=== PATIENT | female | born 1995 | race Asian ===

== ENCOUNTER 2018-03-05 16:04 | Emergency (ER) | payer BC ==
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
--- NOTE | 2018-03-05 18:37 | RAD ---
INDICATION: Intracranial injury COMPARISON: None TECHNIQUE: Noncontrast axial source images were acquired from the skull base to the vertex. FINDINGS: Ventricles/sulci: The ventricles and cisterns are normal in size and configuration for age. Brain parenchyma: There is no focal parenchymal finding, evidence of intracranial mass, or intracranial mass effect. Intracranial hemorrhage:None. Extra-axial spaces: There are no abnormal extra axial fluid collections or evidence of extra-axial mass. Calvarium: There is no calvarial fracture or other calvarial abnormality. Scalp: There is no evidence of scalp or extracalvarial soft tissue abnormality. Paranasal sinuses/mastoid: The paranasal sinuses and mastoid air cells are clear. Other: None. IMPRESSION: NEGATIVE EXAMINATION
[2018-03-05 18:53] VITALS: BP 108/51
== END 2018-03-05 18:53 | disposition home or self-care (01) ==
LOC: ED 16:04
DX: S09.90XA Unspecified injury of head, initial encounter (principal); V00.131A Fall from skateboard, initial encounter; Y93.51 Activity, roller skating (inline) and skateboarding; Y92.9 Unspecified place or not applicable; Z88.0 Allergy status to penicillin; Z72.0 Tobacco use
CPT/HCPCS: 70450; 99282

== ENCOUNTER 2019-01-31 23:44 | Inpatient (IN) | payer BC, OTHER ==
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
[2019-02-01 00:38] LABS: Urine Appearance Clear; Urine Bilirubin Negative (Negative); Urine Blood Negative (Negative); Urine Color Yellow; Urine Glucose Negative (Negative); Urine Ketones 1+ (Negative); Urine Nitrite Negative (Negative); Urine Protein Negative (Negative); Urine Specific Gravity 1.004 (1.010-1.030); Urine Urobilinogen Negative (Negative)
[2019-02-01 00:57] LABS: ABS Lymphocytes 1.7 10^3/ul (1.0-4.8); ABS Monocytes 0.8 10^3/ul (0-0.8); ABS Neutrophils 2.5 10^3/ul (1.5-7.7); Eosinophil % 0.6 %; Hematocrit 40 % (35-47); Hemoglobin 13.4 g/dL (12.0-16.0); Lymphocyte % 33.7 %; Mean Corpuscular HGB Conc 34 g/dL (31-36); Mean Corpuscular Hemoglobin 30 pg (27-31); Mean Corpuscular Volume 90 fL (80-97); Mean Platelet Volume 7.8 fL (7.4-10.4); Platelet Count 205 10^3/uL (150-450); Red Blood Count 4.44 10^6 /uL (3.70-4.87); Red Cell Distribution Width 14 % (10-15); White Blood Count 5.1 10^3/uL (3.5-10.8)
[2019-02-01 01:16] LABS: Urine Benzodiazepine Screen None Detected (None Detect); Urine Opiates Screen None Detected (None Detect)
[2019-02-01 01:17] LABS: ALT 5 U/L (7-52); AST 17 U/L (13-39); Albumin 4.7 g/dL (3.2-5.2); Albumin/Globulin Ratio 1.8 (1-3); Alkaline Phosphatase 42 U/L (34-104); Anion Gap 12 mmol/L (2-11); BUN/Creatinine Ratio 10.2 (8-20); Blood Urea Nitrogen 6 mg/dL (6-24); CO2 Carbon Dioxide 18 mmol/L (22-32); Calcium 9.5 mg/dL (8.6-10.3); Chloride 107 mmol/L (101-111); EGFR African American 152.8 (>60); EGFR Non-African American 126.3 (>60); Globulin 2.6 g/dL (2-4); Glucose 81 mg/dL (70-100); Potassium 3.1 mmol/L (3.5-5.0); Sodium 137 mmol/L (135-145); Total Protein 7.3 g/dL (6.4-8.9)
[2019-02-01 01:22] LABS: Acetaminophen < 15 mcg/mL; Alcohol 134 mg/dL (<10); Salicylate < 2.50 mg/dL (<30)
[2019-02-01] MEDS ORDERED: Potassium Chlor TAB* 20 MEQ TAB.ER PO ONE (01:55)
[2019-02-01] MEDS ORDERED: Lactated Ringers 1000 ML Bag* 1,000 ML IV SCH (02:02)
[2019-02-01] MEDS ORDERED: Acetaminophen TAB* 325 MG PO PRN (05:57)
[2019-02-01] MEDS ORDERED: Al Hydrox/Mg Hydrox/Simet LIQ* 30 ML UDC PO PRN (05:57)
[2019-02-01] MEDS ORDERED: chlorproMAZINE TAB* 50 MG PO PRN (05:58)
[2019-02-01] MEDS ORDERED: Vitamin THERAPEUTIC TAB PO SCH (09:00)
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
[2019-02-01] MEDS ORDERED: diPHENhydraMINE PO* 50 MG PO PRN (22:09)
[2019-02-02 07:18] LABS: Albumin 4.1 g/dL (3.2-5.2); Albumin/Globulin Ratio 1.7 (1-3); BUN/Creatinine Ratio 12.3 (8-20); Calcium 8.9 mg/dL (8.6-10.3); EGFR Non-African American 131.4 (>60); Globulin 2.4 g/dL (2-4); HDL Cholesterol 57.7 mg/dL; Potassium 3.7 mmol/L (3.5-5.0); Total Bilirubin 0.5 mg/dL (0.2-1.0); Total Protein 6.5 g/dL (6.4-8.9)
[2019-02-02] MEDS: Prenatal Vitamin TAB PO SCH (11:17)
--- NOTE | 2019-02-02 11:28 | PN ---
Subjective - Subjective Date of Service: 02/02/19 Service Type: 67902 Hosp care 35 min high complexity Subjective: Nursing Report: Patient was visible on unit, no chemical restraints or PRNs. Slept overnight without incident. Attending group activities. CC: "Fine Patient was seen and evaluated today in the common room. The patient reported she feels safe on the unit and is interacting with peers. She reported having an adequate appetite and sleep. The patient reports attending and participating in day groups. Per nursing no behavioral issues or overnight events reported. Patient received message from [facility] [employer] [facility] in regards to a investigation. [facility] she decided against carrying on her . Patient reported being stressed out over finding out she is and has arranged support of her friends to be with her after she terminates her . Objective - General Observations Appearance: Neat Appears Stated Age: Yes Stature: Thin Posture: WNL Eye Contact: Average Behavior/Activity: Accelerated - Interaction Observations Attitude Towards Examiner: Evasive Stated Mood: Anxious Affect: Blunted Speech Pattern/Tone: Clear Thought Process: Coherent Perception: WNL Thought Content: Self-Deprecatory Hallucination Type: None Delusion Type: None - Cognitive Function Orientation: A&O x 4 Level of Consciousness: Awake - Medication Compliance Cooperative with Inpatient Medication Regimen: Yes - Group Participation Participates in Group Activities: Yes Assessment - Assessment Merits Inpatient Hospitalization: For Immediate Safety Clinical Impression: 23 year old female who recently found out she is presented to the hospital after being found unresponsive following consuming alcohol, ammonia based kitchen products and writing a suicide note. Plan - Plan Treatment Plan: Name: JORGE RIVERA Birthdate: 1995 [id number] Plan # Q15 minute observation. # The patient requires psychiatric inpatient admission at this time to assure safety, receive treatment and work toward stabilization. # MMPI not completed # Hypokalemia resolved # Currently -no further intervention per OB and hospitalist recommendations. # [facility] . # Obtained collateral information from mother # Collaboration with Religion Teacher Antonio Bailey # Borderline Personaility Disorder - Patient informed of Dx and effectiveness of DBT. # Start zoloft 25mg daily for depression. Patient has shown some improvement of insight since yesterday however she does continue to minimize the magnitude of her suicide attempt. #Goals before discharge include: To eliminate/ reduce suicidal ideation ABG pH 7.41 (7.35-7.45) 02/01/19 02:15 ABG HCO3 21.4 mmol/L (19-31) 02/01/19 02:15 Sodium 136 mmol/L (135-145) 02/02/19 06:44 Potassium 3.7 mmol/L (3.5-5.0) 02/02/19 06:44 BUN 7 mg/dL (6-24) 02/02/19 06:44 Creatinine 0.57 mg/dL (0.51-0.95) 02/02/19 06:44 Hemoglobin A1c 5.7 % (4.0-5.6) H 02/02/19 06:44 Calcium 8.9 mg/dL (8.6-10.3) 02/02/19 06:44 AST 13 U/L (13-39) 02/02/19 06:44 ALT 3 U/L (7-52) L 02/02/19 06:44 Triglycerides 54 mg/dL 02/02/19 06:44 Cholesterol 129 mg/dL 02/02/19 06:44 LDL Cholesterol 61 mg/dL 02/02/19 06:44 Continued Medication Management: Start Medication Medications: Current Medications Acetaminophen (Tylenol Tab*) 650 mg PO Q4H PRN PRN Reason: PAIN or TEMP > 101 F Al Hydrox/Mg Hydrox/Simethicone (Maalox Plus*) 30 ml PO Q4H PRN PRN Reason: INDIGESTION Diphenhydramine HCl (Benadryl Po*) 50 mg PO ONCE PRN PRN Reason: INSOMNIA Last Admin: 02/01/19 22:34 Dose: 50 mg Multivitamins ( Vitamin Tab*) 1 tab PO DAILY ED - Discharge Plan Discharge Plan: Inpatient Hospitalization
[2019-02-02] MEDS: Sertraline* 25 MG TAB PO SCH (13:53)
[2019-02-02] MEDS ORDERED: diPHENhydraMINE PO* 50 MG PO PRN (20:46)
[2019-02-03 07:59] VITALS: BP 103/65
[2019-02-03] MEDS: Prenatal Vitamin TAB PO SCH (09:04)
[2019-02-03] MEDS: Sertraline* 25 MG TAB PO SCH (09:04)
--- NOTE | 2019-02-03 10:59 | PN ---
Subjective - Subjective Date of Service: 02/03/19 Service Type: 84600 Hosp care 35 min high complexity Subjective: Nursing Report: Patient was visible on unit, no chemical restraints or PRNs. Slept overnight without incident. Attending group activities. CC: "Better Patient was seen and evaluated today in the common room. The patient reported she feels safe on the unit and read the book that staff provided her" She reported having an adequate appetite and sleep. The patient reports attending and participating in day groups. Per nursing no behavioral issues or overnight events reported. Patient expressed her readiness for discharge tomorrow. She reported no medication side effects. Objective - General Observations Appearance: Neat Stature: WNL Posture: WNL Eye Contact: Average Behavior/Activity: WNL - Interaction Observations Attitude Towards Examiner: Cooperative Stated Mood: Euthymic Affect: Blunted Speech Pattern/Tone: Clear Thought Process: Coherent Perception: WNL Thought Content: WNL Hallucination Type: None Delusion Type: None - Cognitive Function Orientation: A&O x 4 Level of Consciousness: Awake - Medication Compliance Cooperative with Inpatient Medication Regimen: Yes - Group Participation Participates in Group Activities: Yes Assessment - Assessment Merits Inpatient Hospitalization: For Immediate Safety Clinical Impression: 23 year old female who recently found out she is presented to the hospital after being found unresponsive following consuming alcohol, ammonia based kitchen products and writing a suicide note. Plan - Plan Treatment Plan: Name: JORGE RIVERA Birthdate: 1995 [id number] Plan # Q30 minute observation with staff pass # The patient requires psychiatric inpatient admission at this time to assure safety, receive treatment and work toward stabilization. # MMPI indicated features of impulsively and hypomania # [facility] . #Patient will have support of family upon discharge # Obtained collateral information from mother who noted that she has never had a suicide attempt # Collaboration with Basket Patcher Antonio Bailey # Borderline Personaility Disorder - Patient informed of Dx and effectiveness of DBT. # Start zoloft 25mg daily for depression. Will monitor for signs and features of octavio activation. Patient has shown some improvement of insight and shows the ability to ask for help and identify how her mental health effects her. #Goals before discharge include: To eliminate/ reduce suicidal ideation Tentative Discharge ABG pH 7.41 (7.35-7.45) 02/01/19 02:15 ABG HCO3 21.4 mmol/L (19-31) 02/01/19 02:15 Sodium 136 mmol/L (135-145) 02/02/19 06:44 Potassium 3.7 mmol/L (3.5-5.0) 02/02/19 06:44 BUN 7 mg/dL (6-24) 02/02/19 06:44 Creatinine 0.57 mg/dL (0.51-0.95) 02/02/19 06:44 Hemoglobin A1c 5.7 % (4.0-5.6) H 02/02/19 06:44 Calcium 8.9 mg/dL (8.6-10.3) 02/02/19 06:44 AST 13 U/L (13-39) 02/02/19 06:44 ALT 3 U/L (7-52) L 02/02/19 06:44 Triglycerides 54 mg/dL 02/02/19 06:44 Cholesterol 129 mg/dL 02/02/19 06:44 LDL Cholesterol 61 mg/dL 02/02/19 06:44 Vital Signs Temp Pulse Resp BP Pulse Ox 98.4 F 66 16 103/65 99 02/03/19 07:58 02/03/19 07:58 02/03/19 07:58 02/03/19 07:58 02/03/19 07:58 Continued Medication Management: Continue Outpt Medication Medications: Current Medications Acetaminophen (Tylenol Tab*) 650 mg PO Q4H PRN PRN Reason: PAIN or TEMP > 101 F Al Hydrox/Mg Hydrox/Simethicone (Maalox Plus*) 30 ml PO Q4H PRN PRN Reason: INDIGESTION Diphenhydramine HCl (Benadryl Po*) 50 mg PO ONCE PRN PRN Reason: INSOMNIA Last Admin: 02/01/19 22:34 Dose: 50 mg Diphenhydramine HCl (Benadryl Po*) 50 mg PO ONCE PRN PRN Reason: SLEEP Multivitamins ( Vitamin Tab*) 1 tab PO DAILY [facility] Last Admin: 02/03/19 09:04 Dose: 1 tab Sertraline HCl (Zoloft*) 25 mg PO DAILY ED Last Admin: 02/03/19 09:04 Dose: 25 mg - Discharge Plan Discharge Plan: Inpatient Hospitalization
[2019-02-03] MEDS: Cetirizine* 10 MG TAB PO SCH (13:03)
--- NOTE | 2019-02-03 15:34 | PN ---
BSU: Group Therapy Note - Service Type Service Type: 88069 Group Psychotherapy - Medication Education Group: Patient was attentive and participatory in group, and remained in good behavioral control. Patient expressed positive insights regarding relevant treatment interventions. Patient stated understanding of material discussed and had appropriate questions.
--- NOTE | 2019-02-04 08:58 | DS ---
Subjective - Subjective Service Types: [id number] [facility] over 30 min Discharge Date: 02/04/19 Subjective: CC: " Better" Patient looks forward to seeing her friends and getting past the procedure to terminate her . She denied feeling activated or over stimulated. The patient was seen and evaluated before discharge today. The patient reported having adequate appetite and sleep. The patient reports attending and participating in day groups. Per nursing no behavioral issues or overnight events reported. Patient reported tolerating medications without side effects. Justification for admission: Immediate Safety. CC " I got into a fight with my boyfriend" The patient was brought to [facility] by EMS after being found unresponsive at [facility]. The patient reported that she has had severe mood swings over the last month and has been fighting with her boyfriend. She reported drinking 7 shots of tequila last night and became upset and went to [facility] to cool down. She said that the police found suicide notes in her apartment after she requested them to look for her boyfriend at her apartment. Per ED report she consumed bleach and ammonia in a unknown quantity. She expressed that her boyfriend told her that she had a mental illness and needed to get evaluated but she found that to be offensive because she doesnt believe that she has a mental illness. She doesn't want visitors and doesn't want anyone to contact her parents. She reported being in shock after she recently found out that she was upon arriving to the hospital. She denied access to firearms or stockpiles of medications. She reported her sleep to be increased and has a diminished appetite. The patient denied homicidal ideation intent or plan. The patient denied auditory and/ or visual hallucinations. MDD She reported feeling sad for the last month and attributed it to having PMS ( pre-menstrual syndrome). She reported crying more often lately. She denied unintentional weight loss. She denied disturbance of sleep. She reported feelings of guilt and decreased concentration. Anxiety Denied having symptoms of anxiety such as having times where heart feels that it is beating out of chest , sweaty palms, or shallow breathing. Denied having uncomfortable or intrusive thoughts. Denied feeling restless, high strung, or worrying too much most of the time. Bipolar Reported severe mood swings, irritability and anger causing her to fight with her boyfriend. She denied increased talkativeness where no one can interrupt. She denied an increase in intensity in goal directed activities. She denied having the decreased need to sleep for days , having prolonged elevated mood , or feeling on top of the world. Denied impulsive risky sexual encounters. Denied spending money recklessly , going on spending sprees wiping out savings. Denied impulsively traveling out of town or country, having super cardoza, and unrealistic wealth or fame. Psychosis Does not endorse hearing things that other people do not hear or seeing things other people do not see. Denied feeling that TV is making references. Denied feeling that people are spying , following , or reading their thoughts. Eating disorders: Patient denied having excessive eating habits or feelings of guilt after eating. Denied repeated episodes of self induced vomiting after eating. PTSD Denied flashbacks, nightmares and avoidance of a prior traumatic event. PAST PSYCHIATRIC HISTORY: Prior Diagnosis : Unconfirmed ADHD Diagnosed in 8th grade. Unconfirmed premenstrual dysphoric disorder. History of past Psychiatric Hospitalizations: 1 prior psychiatric admission in [place] at age 14. History of past suicide/homicide attempts : Denied past suicide attempts. Denied past homicidal incidents. Outpatient follow-up: None Medications: Past trials of medications include adderall and vyvanse, stopped taking at age 16. Guardianship: None. FAMILY HISTORY: - Suicide: Patient is adopted and doesnt know if she has a family history of suicide. - Mental illness: Patient is adopted and doesnt know if she has a history of mental health in her biological family. - Substance abuse: Patient is adopted and doesnt know if she has substance abuse among her biological family members. SUBSTANCE ABUSE HISTORY: Denied using tobacco, heroin cocaine or other illicit substances. Denied abusing pills for recreational use. Denied past Substance abuse treatment. - EtOH: Drinks mixed drinks socially about once a week. Denied history of seizures or legal issues. SOCIAL HISTORY: Patient is single and has no children. She was adopted and raised in [place]. She completed high school and dropped out of [employer] for a job. She denied a history of physical and or sexual abuse. - Legal history: Denied - service history: Denied PAST MEDICAL HISTORY: Denied heart disease, diabetes, cancer and/ or other medical conditions. - Allergies: Penicillin. Physical Exam: Please see ED note Mental Status Exam on Admission APPEARANCE : 23 year old female who appears stated age. Patient is not malodourous, and appears to have fair hygiene and grooming. BEHAVIOR: Cooperative , calm EYE CONTACT: Fair PSYCHOMOTOR ACTIVITY: No psychomotor agitation or retardation. MOVEMENTS: No abnormal movements observed. SPEECH : Normal rate, rhythm, volume and tone. MOOD : " Sad" AFFECT : Type is depressed Range is restricted with shallow depth Mood Incongruent THOUGHT PROCESS: Formulated and organized in a logical, linear goal directed manner. No flight of ideas, neologism (made up words) , perseveration , tangential , loose associations , or circumstantiality. THOUGHT CONTENT: no delusions, obsessions, phobias or preoccupations. PERCEPTION: No current auditory or visual hallucinations. Doesnt appear to be responding to internal cues. No evidence of depersonalization , de-realization, or illusions SUICIDALITY Recent suicide attempt HOMICIDALITY Denied homicidal ideation, intent or plan. Insight/judgment: Poor insight and judgment ORIENTATION: Oriented to self, location, and time. Diagnosis on Admission: Major Depressive Disorder severe. Diagnosis on Discharge: Major Depressive Disorder in partial remission. Borderline Personality Disorder. Condition at the time of discharge: At the time of discharge patient showed improvement of sleep and appetite. The patient was not a danger to self or others. The patient denied suicidal ideation , intent or plan. The patient denied homicidal targets, ideation, intent or plan. This patient participated in psychosocial rehabilitation and gained some insight into problems. The patient gained insight into mental illness, triggers, and treatment. The patient took medication as prescribed. The patient denied side effects of medication and objective signs of side effects were not evident. Therapy Resources were offered to the patient. Patient was given a supply of prescriptions at the time of discharge. The patient plans to attend follow up care with the follow up arrangements that were discussed and put in place. Patient was asked to keep appointments as scheduled, take medication as prescribed, have routine follow up care with their primary care physician and refrain from any use of alcohol or drugs. Objective - General Observations Appearance: Neat Appears Stated Age: Yes Stature: Thin Posture: WNL Eye Contact: Average Behavior/Activity: WNL - Interaction Observations Attitude Towards Examiner: Cooperative Stated Mood: Euthymic Affect: Full Speech Pattern/Tone: Clear Thought Process: Coherent Perception: WNL Thought Content: WNL Hallucination Type: None Delusion Type: None - Cognitive Function Orientation: A&O x 4 Level of Consciousness: Awake Cognition: WNL - Medication Compliance Cooperative with Inpatient Medication Regimen: Yes - Group Participation Participates in Group Activities: Yes Treatment Course & Assessment Clinical Course & Impression: 23 year old female who recently found out she is presented to the hospital after being found unresponsive following consuming alcohol, ammonia based kitchen products and writing a suicide note. Hospital course part A: Hospital course part B: Labs ordered included CBC, CMP, UDS, TSH, HBA1c, TSH, EKG Toxicology screen, Urine analysis, and lipid profile. Labs were reviewed and interrupted. Vital signs were monitored during the course of admission. MMPI was ordered and indicated features of EKG was reviewed and no abnormal findings were present. The patient was admitted to the adult behavioral unit and placed on 15 minute check for safety. At a later time the patient was on Q30 minute observation and staff pass privileges. With those limits being extended , there were no occurrence of behavioral incidents. The patient did well on the unit and went to groups. Interacted with peers had adequate sleep and regular appetite. Tolerated medication changes without side effects. Group therapy and services were offered. The risks, benefits, and alternative treatment options were discussed as well as of the risks of refusing treatment. Treatment associated risks discussed. After this discussion made an acknowledgement of this understanding. Follow up care appointments were put in place for follow up care. The importance of monitoring for metabolic changes was discussed and acknowledgement of this understanding was made. Patient informed not to abruptly stop or start new medications before consulting with a medical professional. Improvements in patient from the time of admission include: Improved affect, sleep and decrease in anxiety. No longer suicidal and no longer having feelings of hopelessness. The patient expressed readiness for discharge home. The patient presents with a broader range of affect, and the absence of depressed mood, delusions, perceptual disturbances. The patient denied suicidal and or homicidal ideation intent or plan. Overall, the patient responded well to inpatient treatment as evidenced by their report of strengthening of coping mechanisms, reduced distress, and more positive outlook on circumstances. Of note there was an improvement of recognizing how emotional state can effect mood and behavior. Safety precautions were put in place which included involving the patient and their family to closely monitor for changes in mental state. In addition, implementing follow up care, screening for the need to remove/securing firearms , weapons and stockpile of medications. Patient/ family instructed to immediately call 911 should any safety concerns arise. B-HCG is positive for current . She plans to terminate her however she was informed of the risks associated with medication in . In the event that she wants to continue her she was advised to talk with her outpatient healthcare provider about starting or stopping medications during . The patient was advised of the 24 hour / 7 days a week availability of the emergency room and to call 911 in the event of an emergency such as being suicidal and/ or homicidal. The patient was informed of the contact information for [facility], Suicide Prevention and Crisis Services, National Suicide Prevention Lifeline, [facility], Alcoholics Anonymous, and [facility]. Medications started included zoloft 25mg daily for depression. She was advised that this medication can cause a activation of octavio in certain people and what to do in that event and what signs to look out for. Family meeting took place before discharge. The family confirmed that the patient is at their baseline and is in agreement with the discharge plan. They were advised on how the days following discharge can be a vulnerable period and to look out for warning signs associated with decompensation and progression of mental illness. They were notified of the resources available in the event these situations arise and confirmed that the patient has no access to firearms or stock piles of medications. It was not confirmed if she consumed bleach or ammonia products however precautions and medical needs were addressed in the event that she did consume those products. Consults included to hospitalist team and PL[employer] UT[employer] PERSON hypokalemia and was addressed. [facility] . Patient was not assaultive or a behavioral problem during the course of admission. The patient showed improvement of hygiene and was able to carry out activities of daily living. Patient will be discharged to live at home. Her family is coming Friday to stay with her. She was offered resources for alcohol abuse but declined. Follow up appointment at [facility], [facility] Patient informed of follow up appointment times. See more details for follow up care in the discharge plan. Risk factors: Single, mental illness. Recent changes in relationship status, acute emotional stress (terminating ). Recent suicide attempt. Dynamic risk factors : supportive care and therapy was provided for acute stressors, DBT for borderline personality disorder, assurance of increased support system during the time following her procedure. Recent suicide attempt: She was provided with therapy, medication, follow up care appointments and provided resources to mitigate her future risk of suicide. Protective factors: Currently no suicidal ideation, intent or plan. Has strong support system. No history of service. Currently no feelings of hopelessness, not in an occupation of social isolation, doesnt have multiple medical conditions, no family history of suicide, doesnt have access to firearms. Doesnt have command hallucinations and or psychotic features at this time. No current substance abuse. Doesn't have a chronic history of alcohol abuse. Not an anniversary of a loss of a loved one. Currently future orientated. Patient engaged in treatment and compliant with medication. ABG pH 7.41 (7.35-7.45) 02/01/19 02:15 ABG HCO3 21.4 mmol/L (19-31) 02/01/19 02:15 Sodium 136 mmol/L (135-145) 02/02/19 06:44 Potassium 3.7 mmol/L (3.5-5.0) 02/02/19 06:44 BUN 7 mg/dL (6-24) 02/02/19 06:44 Creatinine 0.57 mg/dL (0.51-0.95) 02/02/19 06:44 Hemoglobin A1c 5.7 % (4.0-5.6) H 02/02/19 06:44 Calcium 8.9 mg/dL (8.6-10.3) 02/02/19 06:44 AST 13 U/L (13-39) 02/02/19 06:44 ALT 3 U/L (7-52) L 02/02/19 06:44 Triglycerides 54 mg/dL 02/02/19 06:44 Cholesterol 129 mg/dL 02/02/19 06:44 LDL Cholesterol 61 mg/dL 02/02/19 06:44 Vital Signs Temp Pulse Resp BP Pulse Ox 98.4 F 66 17 103/65 99 02/03/19 07:58 02/03/19 07:58 02/04/19 11:28 02/03/19 07:58 02/03/19 07:58 Merits Inpatient Hospitalization: No Clear for Discharge: Adequate Clinical Respons Discharge Planning - Discharge Planning Discharge Plan: Outpatient Follow Up Outpatient Program: [facility] Recommendations for Continuing Care: Medication Management Medications: Current Medications Acetaminophen (Tylenol Tab*) 650 mg PO Q4H PRN PRN Reason: PAIN or TEMP > 101 F Al Hydrox/Mg Hydrox/Simethicone (Maalox Plus*) 30 ml PO Q4H PRN PRN Reason: INDIGESTION Cetirizine HCl (Zyrtec*) 10 mg PO DAILY ED; Protocol Last Admin: 02/03/19 13:03 Dose: 10 mg Diphenhydramine HCl (Benadryl Po*) 50 mg PO ONCE PRN PRN Reason: INSOMNIA Last Admin: 02/01/19 22:34 Dose: 50 mg Diphenhydramine HCl (Benadryl Po*) 50 mg PO ONCE PRN PRN Reason: SLEEP Multivitamins ( Vitamin Tab*) 1 tab PO DAILY ED Last Admin: 02/03/19 09:04 Dose: 1 tab Sertraline HCl (Zoloft*) 25 mg PO DAILY ED Last Admin: 02/03/19 09:04 Dose: 25 mg Discharge Planning: Prescriptions provided for discharge [x] Yes [] No Follow up care details as per social work arrangements. Patient response to discharge plan: [x] eager for discharge [] agreeable with discharge plan [] ambivalent about discharge [] disagrees with discharge today
[2019-02-04] MEDS: Prenatal Vitamin TAB PO SCH (09:14)
[2019-02-04] MEDS: Sertraline* 25 MG TAB PO SCH (09:14)
[2019-02-04] MEDS: Cetirizine* 10 MG TAB PO SCH (09:14)
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
== END 2019-02-04 10:15 | disposition home or self-care (01) | DRG 566 ==
LOC: ED 23:44 → BSU 02-01 06:30
PROVIDERS: ADMIT Psychiatry & Neurology Psychiatry; ATTEND Psychiatry & Neurology Psychiatry
PROC: GZHZZZZ Group Psychotherapy (ICD-10-PCS; principal; 2019-02-03)
DX: O99.341 Other mental disorders complicating pregnancy, first trimester (principal); F32.9 Major depressive disorder, single episode, unspecified; F32.81 Premenstrual dysphoric disorder; F60.3 Borderline personality disorder; F90.9 Attention-deficit hyperactivity disorder, unspecified type; T59.892A Toxic effect of other specified gases, fumes and vapors, intentional self-harm, initial encounter; E87.6 Hypokalemia; O99.281 Endocrine, nutritional and metabolic diseases complicating pregnancy, first trimester; O9A.211 Injury, poisoning and certain other consequences of external causes complicating pregnancy, first trimester; Y92.9 Unspecified place or not applicable; Z72.89 Other problems related to lifestyle
CPT/HCPCS: 36415; 80053; 80061; 80307; 80320; 80329; 81003; 82803; 83036; 83930; 84443; 84702; 85025; 86850; 86900; 86901; 90853; 93005; 96130; 99222; 99233; 99238; 99285; A9270-GY; G0480

== ENCOUNTER 2019-03-04 02:06 | Emergency (ER) | payer OTHER ==
--- NOTE | 2019-03-04 03:36 | ED ---
Substance Abuse/Use - HPI Summary HPI Summary: LEVEL 5 CAVEAT secondary to decreased responsiveness with intoxication. The patient is a 23 y/o F arriving by ambulance to [facility] with a chief complaint of EtOH intoxication this morning. She was found on the ground outside of the police station unable to stand independently with decreased responsiveness. PMHx : bipolar disorder, suicide attempt, inpatient treatment (per records). Light every day tobacco smoker, occasional EtOH, no substance use. - History Of Current Complaint Chief Complaint: EDSubstanceAbuse Stated Complaint: 2208 PER EMS Hx Obtained From: EMS Hx From Patient Unobtainable Due To: Other - LEVEL 5 CAVEAT secondary to decreased responsiveness with intoxication Onset/Duration of Drug/ETOH Abuse: Hours Ingestion History: Type/Name Of Drug - EtOH Character: Other - unresponsive Associated Signs And Symptoms: Other: - EtOH intoxication, decreased responsiveness - Allergies/Home Medications Allergies/Adverse Reactions: Allergies Allergy/AdvReac Type Severity Reaction Status Date / Time Penicillins Allergy Hives Verified 03/04/19 02:17 PMH/Surg Hx/FS Hx/Imm Hx Endocrine/Hematology History: Denies: Hx Anticoagulant Therapy, Hx Diabetes Cardiovascular History: Denies: Hx Hypertension, Hx Myocardial Infarction Sensory History: Denies: Hx Contacts or Glasses, Hx Legally Blind, Hx Deafness, Hx Hearing Aid Opthamlomology History: Denies: Hx Contacts or Glasses, Hx Legally Blind Psychiatric History: Reports: Hx Inpatient Treatment, Hx Community Mental Health Tx, Hx Bipolar Disorder, Hx Suicide Attempt Denies: Hx Eating Disorder, Hx Depression, Hx of Violent Episodes Against Others - Surgical History Surgical History: None Surgery Procedure, Year, and Place: none Infectious Disease History: No Infectious Disease History: Denies: Traveled Outside the [place] in Last 30 Days - Family History Known Family History: Positive: Unknown - adopted - Social History Alcohol Use: Occasionally Hx Substance Use: No Substance Use Type: Reports: None Hx Tobacco Use: Yes Smoking Status (MU): Light Every Day Tobacco Smoker Review of Systems Neurological: Other - decreased responsiveness Psychological: Other - EtOH intoxication All Other Systems Reviewed And Are Negative: No - Comments Additional Review of Systems Comments: LEVEL 5 CAVEAT secondary to decreased responsiveness with intoxication Physical Exam - Summary Physical Exam Summary: Appearance: Well-appearing, Well-nourished, lying in bed comfortably sleeping Skin: Warm, dry, no obvious rash Eyes: sclera anicteric, no conjunctival pallor ENT: mucous membranes moist, pharynx appears normal Neck: Supple, nontender Respiratory: Clear to auscultation, no signs of respiratory distress Cardiovascular: Normal S1, S2. No murmurs. Normal distal pulses in tibial and radial bilaterally. Abdomen: Soft, nontender, normal active bowel sounds present Musculoskeletal: Normal, Strength/ROM Intact Neurological: Arousable to noxious stimuli and will open eyes to command but is very somnolent Psychiatric: affect is normal, does not appear anxious or depressed Triage Information Reviewed: Yes Vital Signs On Initial Exam: Initial Vitals Pulse BP Pulse Ox 107 107/48 95 03/04/19 02:06 03/04/19 02:06 03/04/19 02:06 Vital Signs Reviewed: Yes Completion Of Physical Exam Limited Due To: Level 5 - secondary to decreased responsiveness with intoxication Diagnostics - Vital Signs Vital Signs Temp Pulse Resp BP Pulse Ox 03/04/19 03:05 105 84/44 94 03/04/19 03:00 105 94 03/04/19 02:38 103 97/49 95 03/04/19 02:35 102 80/47 95 03/04/19 02:24 105 95 03/04/19 02:08 98.0 F 115 16 107/48 97 03/04/19 02:06 107 107/48 95 - Laboratory Lab Statement: Any lab studies that have been ordered have been reviewed, and results considered in the medical decision making process. Course/Dx - Course Course Of Treatment: LEVEL 5 CAVEAT. Patient is a 23 y/o F with cc of intoxication and decreased responsiveness tonight; unable to stand independently. Upon physical exam, the patient appears arousable to noxious stimuli and will open eyes to command but is very somnolent. Serum alcohol is 153. The patient is a sign-out to Dr. Ulices Dale MD, from Dr. Finesse Pa MD, at change of shift at 0700 on 03/04/2019, pending sobriety improvement. - Diagnoses Provider Diagnoses: Alcohol intoxication Discharge - Sign-Out/Discharge Documenting (check all that apply): Sign-Out Patient Signing out patient TO: Ulices Dale - Patient is a sign-out to Dr. Ulices Dale MD, at change of shift at 0700 on 03/04/2019, pending sobriety improvement. Patient Received Moderate/Deep Sedation with Procedure: No - Discharge Plan Condition: Stable Disposition: HOME Patient Education Materials: Abuse of Alcohol (ED) Referrals: [facility] [Outside] - 3 Days Additional Instructions: Follow up with [facility] in 3 days. Return to the Emergency Department for new or worsening symptoms. - Billing Disposition and Condition Condition: STABLE Disposition: Home - Attestation Statements Document Initiated by Purnima: Yes Documenting Scribe: Megan Villavicencio Provider For Whom Purnima is Documenting (Include Credential): Dr. Finesse Pa MD Scribe Attestation: Megan Myles scribed for Dr. Finesse Pa MD on 03/08/19 at 0202. Scribe Documentation Reviewed: Yes Provider Attestation: The documentation as recorded by the Megan saba accurately reflects the service I personally performed and the decisions made by me, Dr. Finesse Pa MD Status of Scribe Document: Viewed
[2019-03-04 04:00] LABS: HCG Pregnancy 0.93 mIU/mL
--- NOTE | 2019-03-04 08:33 | ED ---
Progress - Progress Note Progress Note: Patient signed out from Dr. Pa upon shift change 03/04/19 07:00 pending improvement of alcohol intoxication and disposition. Course/Dx - Course Course Of Treatment: This patient was signed out by Dr. Miguel at shift change. The patient came in with alcohol intoxication. Patient is awaiting for the patient to be sober. Patient is hemodynamically stable. Patient is sober, patient is alert and oriented 3. Patient is hemodynamically stable. She will be discharged home with follow-up with PCP. - Diagnoses Provider Diagnoses: Alcohol intoxication Discharge - Sign-Out/Discharge Documenting (check all that apply): Patient Departure - Discharge Patient Received Moderate/Deep Sedation with Procedure: No - Discharge Plan Condition: Stable Disposition: HOME Patient Education Materials: Abuse of Alcohol (ED) Referrals: [facility] [Outside] - 3 Days Additional Instructions: Follow up with [facility] in 3 days. Return to the Emergency Department for new or worsening symptoms. - Billing Disposition and Condition Condition: STABLE Disposition: Home - Attestation Statements Document Initiated by Scribe: Yes Documenting Scribe: Sylvia Holley Provider For Whom Markibe is Documenting (Include Credential): Ulices Dale MD Scribe Attestation: I, Sylvia Holley, scribed for Ulices Dale MD on 03/04/19 at 0839. Scribe Documentation Reviewed: Yes Provider Attestation: The documentation as recorded by the scribeSylvia accurately reflects the service I personally performed and the decisions made by me, Ulices Dale MD Status of Scribe Document: Viewed
[2019-03-04 09:21] VITALS: BP 99/51
== END 2019-03-04 09:20 | disposition home or self-care (01) ==
LOC: ED 02:06
DX: F10.129 Alcohol abuse with intoxication, unspecified (principal); F31.9 Bipolar disorder, unspecified; F17.210 Nicotine dependence, cigarettes, uncomplicated; Z88.0 Allergy status to penicillin
CPT/HCPCS: 36415; 80320; 84702; 99283; G0480